=== PATIENT | female | born 1975 | race Caucasian/White ===

== ENCOUNTER 2018-12-25 17:58 | Inpatient (IN) | payer MEDICAID ==
[~2018-12-25] VITALS: Ht 160 cm; Wt 97.8 kg
[2018-12-25 18:57] LABS: BASOPHILS # (AUTO) 0.1 X10'3 (0-0.2); BASOPHILS % (AUTO) 0.4 % (0-1); EOSINOPHILS # (AUTO) 0.1 X10'3 (0-0.9); EOSINOPHILS % (AUTO) 0.6 % (0-6); HEMATOCRIT 38.2 % (35.0-45.0); HEMOGLOBIN 12.1 g/dl (12.0-16.0); LYMPHOCYTES # (AUTO) 2.4 X10'3 (1.1-4.8); LYMPHOCYTES % (AUTO) 19.3 % (21-51); MEAN CORPUSCULAR HEMOGLOBIN 22.9 PG (27.0-31.0); MEAN CORPUSCULAR HGB CONC 31.7 g/dL (33.0-36.5); MEAN CORPUSCULAR VOLUME 72.3 FL (78-98); MEAN PLATELET VOLUME 10.1 FL (7.4-10.4); MONOCYTES # (AUTO) 0.7 X10'3 (0-0.9); MONOCYTES % (AUTO) 5.7 % (2-12); NEUTROPHILS # (AUTO) 9.3 X10'3 (1.8-7.7); PLATELET COUNT 198 X10'3 (140-440); RED BLOOD COUNT 5.29 X10'6 (4.20-5.60); RED CELL DISTRIBUTION WIDTH 15.7 % (11.5-14.5); WHITE BLOOD COUNT 12.6 X10'3 (4.5-11.0)
[2018-12-25 18:59] LABS: URINE HCG NEGATIVE (NEG)
[2018-12-25 19:05] LABS: CLARITY,URINE CLEAR (Clear); COLOR,URINE YELLOW (Yellow); GLUCOSE, URINE NEGATIVE (Neg); KETONES,URINE NEGATIVE (Neg); LEUKOCYTE ESTERASE ,URINE NEGATIVE (Neg); NITRITES, URINE NEGATIVE (Neg); OCCULT BLOOD,URINE TRACE-INTACT (Neg); PH,URINE 6.5 (4.8-8.0); PROTEIN,URINE NEGATIVE (Neg); UROBILINOGEN,URINE 0.2 E.U/dL (0.2-1.0)
[2018-12-25 19:07] LABS: ALANINE AMINOTRANSFERASE 68 U/L (12-78); ALBUMIN 3.6 G/DL (3.4-5.0); ALBUMIN/GLOBULIN RATIO 0.9 (1.1-1.5); ALKALINE PHOSPHATASE 95 IU/L (46-116); ANION GAP 9 (8-16); ASPARTATE AMINO TRANSFERASE 101 U/L (10-37); BILIRUBIN,TOTAL 0.4 MG/DL (0.1-1.0); BLOOD UREA NITROGEN 9 MG/DL (7-18); BUN/CREATININE RATIO 12.9 (6.6-38.0); CALCIUM 9.1 MG/DL (8.5-10.1); CHLORIDE 103 MMOL/L (99-107); GLUCOSE 100 MG/DL (70-104); LIPASE 201 U/L (73-393); POTASSIUM 3.9 MMOL/L (3.5-5.1); SODIUM 137 MMOL/L (135-145); TOTAL CARBON DIOXIDE 25.5 MMOL/L (24-32); TOTAL PROTEIN 7.5 G/DL (6.4-8.2); eGFR 90 ML/MIN
[2018-12-25 19:08] LABS: UA COLLECTION TYPE CLN CATCH MIDSTREAM
[2018-12-25 19:27] LABS: BACTERIA,URINE FEW /HPF (Neg); RBC,URINE 0-2 /HPF (0-2); SQUAMOUS EPITHELIAL CELL,UR MODERATE /LPF (FEW); WBC,URINE 0-4 /HPF (0-4)
--- NOTE | 2018-12-25 20:22 | NUR ---
pt ambulated to restroom and back in room 10 on a steady gait.
[2018-12-25] MEDS ORDERED: LIDOcaine Viscous 15ml cup PO ONE (20:35)
[2018-12-25] MEDS ORDERED: famotidine/PF 10 mg/ml inj IV ONE (20:35)
[2018-12-25] MEDS ORDERED: ondansetron/PF 4mg/2ml inj IV ONE (20:35)
[2018-12-25] MEDS ORDERED: mag hydrox/Alum hydrox/simeth 30ml oral suspension PO ONE (20:35)
[2018-12-25] MEDS ORDERED: normal saline 1000ML IV soln IVB ONE (20:35)
--- NOTE | 2018-12-25 21:20 | NUR ---
pt to ct.
[2018-12-25] MEDS: morphine 4 MG/ML inj SYRINge IV PRN (21:36)
[2018-12-25] MEDS ORDERED: NO HOME MEDS (23:12)
[2018-12-25] MEDS ORDERED: potassium Cl 40MEQ/NS 500ml 500 ML IV PRN ×2 (23:20)
[2018-12-25] MEDS ORDERED: diphenhydrAMINE 50 mg/ml inj IV PRN (23:20)
[2018-12-25] MEDS ORDERED: morphine 4 MG/ML inj SYRINge IV PRN ×2 (23:20)
[2018-12-25] MEDS ORDERED: magnesium 2GM in 50ml NS 50 ML IV PRN (23:20)
[2018-12-25] MEDS ORDERED: HYDROcodone/acetaminophen 10/325mg tab PO PRN (23:20)
[2018-12-25] MEDS ORDERED: acetaminophen 325mg tablet PO PRN (23:20)
[2018-12-25] MEDS ORDERED: diphenhydrAMINE 25mg capsule PO PRN (23:20)
[2018-12-25] MEDS ORDERED: bisacodyl 10mg suppository rectal RC PRN (23:20)
[2018-12-25] MEDS ORDERED: magnesium 4gm in 100ml NS 100 ML IV PRN (23:20)
[2018-12-25] MEDS: normal saline 1000ml 1,000 ML IV SCH (23:47)
--- NOTE | 2018-12-25 23:54 | NUR ---
pt placed on hospital bed for comfort
[2018-12-26] MEDS: ondansetron/PF 4mg/2ml inj IV PRN (00:28)
[2018-12-26] MEDS: morphine 4 MG/ML inj SYRINge IV PRN (00:29)
[2018-12-26 07:48] LABS: BASOPHILS % (AUTO) 0.4 % (0-1); EOSINOPHILS # (AUTO) 0.1 X10'3 (0-0.9); EOSINOPHILS % (AUTO) 0.9 % (0-6); HEMATOCRIT 34.4 % (35.0-45.0); HEMOGLOBIN 11.1 g/dl (12.0-16.0); LYMPHOCYTES # (AUTO) 2.1 X10'3 (1.1-4.8); LYMPHOCYTES % (AUTO) 27.2 % (21-51); MEAN CORPUSCULAR HEMOGLOBIN 23.2 PG (27.0-31.0); MEAN CORPUSCULAR HGB CONC 32.3 g/dL (33.0-36.5); MEAN PLATELET VOLUME 9.8 FL (7.4-10.4); MONOCYTES # (AUTO) 0.6 X10'3 (0-0.9); MONOCYTES % (AUTO) 8.1 % (2-12); NEUTROPHILS # (AUTO) 4.8 X10'3 (1.8-7.7); NEUTROPHILS % (AUTO) 63.4 % (42-75); PLATELET COUNT 151 X10'3 (140-440); RED BLOOD COUNT 4.78 X10'6 (4.20-5.60); RED CELL DISTRIBUTION WIDTH 15.8 % (11.5-14.5); WHITE BLOOD COUNT 7.5 X10'3 (4.5-11.0)
[2018-12-26 07:59] LABS: ALANINE AMINOTRANSFERASE 89 U/L (12-78); ALBUMIN 2.9 G/DL (3.4-5.0); ALBUMIN/GLOBULIN RATIO 0.8 (1.1-1.5); ALKALINE PHOSPHATASE 91 IU/L (46-116); ANION GAP 8 (8-16); ASPARTATE AMINO TRANSFERASE 63 U/L (10-37); BILIRUBIN,TOTAL 0.4 MG/DL (0.1-1.0); BLOOD UREA NITROGEN 8 MG/DL (7-18); BUN/CREATININE RATIO 12.5 (6.6-38.0); CALCIUM 8.2 MG/DL (8.5-10.1); CHLORIDE 109 MMOL/L (99-107); CHOL/HDL RATIO 4.7 (0.00-4.99); CHOLESTEROL 159 MG/DL (0-200); CREATININE 0.64 MG/DL (0.40-0.90); GLUCOSE 90 MG/DL (70-104); HDL CHOLESTEROL 34 MG/DL (35-60); LDL CHOLESTEROL 107 MG/DL (50-100); MAGNESIUM 1.8 MG/DL (1.5-2.4); POTASSIUM 3.9 MMOL/L (3.5-5.1); SODIUM 141 MMOL/L (135-145); TOTAL CARBON DIOXIDE 23.9 MMOL/L (24-32); TOTAL PROTEIN 6.4 G/DL (6.4-8.2); TRIGLYCERIDES 114 MG/DL (20-135); eGFR > 90 ML/MIN
[2018-12-26] MEDS: K and/or MAG REPLACEMENT MC SCH (08:00)
[2018-12-26] MEDS: famotidine/PF 10 mg/ml inj IV SCH ×2 (08:53→20:00)
[2018-12-26] MEDS: levoFLOXACIN-Levaquin 500mg/D5 100 ML IV SCH (08:53)
[2018-12-26] MEDS: metroNIDAZOLE-Flagyl 500mg/NS 100 ML IV SCH ×2 (09:03→16:00)
--- NOTE | 2018-12-26 09:58 | NUR ---
[facility] CALLED, SINCE PT RECEIVED MORPHINE APPROX 1 HR AGO THE STUDY IS ON HOLD UNTIL 1900 THIS EVENING. REQUESTED NO OTHER NARCOTICS AND PT WILL REMAIN NPO.
[2018-12-26] MEDS ORDERED: sincalide inj 2 MCG in normal saline 50ml IV soln 50 ML IV ONE ×2 (10:00→17:50)
--- NOTE | 2018-12-26 10:35 | NUR ---
DR DEAN WAS IN TO SEE PT, SAYS SHE WILL TALK TO THE SURGEON
[2018-12-26] MEDS ORDERED: NO HOME MEDS ×3 (11:19→11:23)
[2018-12-26] MEDS: normal saline 1000ml 1,000 ML IV SCH (14:28)
--- NOTE | 2018-12-26 16:56 | NUR ---
PATIENT TO NUCLEAR MEDICAINE IN WHEEL CHAIR WITH ALL HER BELONGINGS.. PATIENT AMBULATED TO BATHROOM WNL; VOIDED PRIOR TO GOING FOR HIDA SCAN
--- NOTE | 2018-12-26 17:02 | NUR ---
Patient in room ED 6. I have received report from ER Neela MARSHALL and had the opportunity to ask questions, Patient is in a HIDA scan in nuc med currently.
--- NOTE | 2018-12-26 17:02 | NUR ---
PHONE REPORT TO PENELOPE MARSHALL; PATIENT GOING TO ROOM 347A AFTER HIDA SCAN
--- NOTE | 2018-12-26 18:22 | NUR ---
Problems reprioritized. Patient report given, questions answered & plan of care reviewed with Deyanira MARSHALL.
--- NOTE | 2018-12-26 18:30 | NUR ---
Patient in room [facility]. I have received report from Mona MARSHALL and had the opportunity to ask questions and assume patient care. Patient is not in room at this time.
--- NOTE | 2018-12-26 18:50 | NUR ---
Patient arrived back to room rom having hida scan. Patient A&Ox4, family at bedside, in no pain or distress at this time.
[2018-12-26 19:00] VITALS: BP 112/66
[2018-12-26] MEDS: oxyCODONE IR 5mg (immed. release) tablet PO PRN (21:14)
[2018-12-27 00:07] VITALS: BP 108/57
[2018-12-27] MEDS ORDERED: famotidine/PF 10 mg/ml inj IV ONE (00:55)
[2018-12-27] MEDS: normal saline 1000ml 1,000 ML IV SCH ×3 (01:00→13:41)
[2018-12-27] MEDS: oxyCODONE IR 5mg (immed. release) tablet PO PRN ×3 (03:04→19:09)
[2018-12-27 05:45] LABS: BASOPHILS % (AUTO) 0.3 % (0-1); EOSINOPHILS # (AUTO) 0.1 X10'3 (0-0.9); EOSINOPHILS % (AUTO) 1.1 % (0-6); HEMATOCRIT 35.3 % (35.0-45.0); HEMOGLOBIN 11.2 g/dl (12.0-16.0); LYMPHOCYTES # (AUTO) 2.4 X10'3 (1.1-4.8); LYMPHOCYTES % (AUTO) 30.2 % (21-51); MEAN CORPUSCULAR HEMOGLOBIN 23.2 PG (27.0-31.0); MEAN CORPUSCULAR HGB CONC 31.9 g/dL (33.0-36.5); MEAN CORPUSCULAR VOLUME 72.7 FL (78-98); MEAN PLATELET VOLUME 10.3 FL (7.4-10.4); MONOCYTES # (AUTO) 0.7 X10'3 (0-0.9); MONOCYTES % (AUTO) 8.4 % (2-12); NEUTROPHILS # (AUTO) 4.8 X10'3 (1.8-7.7); PLATELET COUNT 143 X10'3 (140-440); RED BLOOD COUNT 4.85 X10'6 (4.20-5.60); RED CELL DISTRIBUTION WIDTH 16.1 % (11.5-14.5)
[2018-12-27 06:03] LABS: ALANINE AMINOTRANSFERASE 66 U/L (12-78); ALBUMIN 2.9 G/DL (3.4-5.0); ALBUMIN/GLOBULIN RATIO 0.8 (1.1-1.5); ALKALINE PHOSPHATASE 84 IU/L (46-116); ANION GAP 10 (8-16); ASPARTATE AMINO TRANSFERASE 24 U/L (10-37); BILIRUBIN,TOTAL 0.5 MG/DL (0.1-1.0); BLOOD UREA NITROGEN 9 MG/DL (7-18); BUN/CREATININE RATIO 14.1 (6.6-38.0); CALCIUM 8.3 MG/DL (8.5-10.1); CHLORIDE 107 MMOL/L (99-107); CREATININE 0.64 MG/DL (0.40-0.90); GLUCOSE 80 MG/DL (70-104); MAGNESIUM 1.7 MG/DL (1.5-2.4); POTASSIUM 3.7 MMOL/L (3.5-5.1); SODIUM 140 MMOL/L (135-145); TOTAL CARBON DIOXIDE 23.3 MMOL/L (24-32); TOTAL PROTEIN 6.4 G/DL (6.4-8.2); eGFR > 90 ML/MIN
--- NOTE | 2018-12-27 06:50 | NUR ---
Problems reprioritized. Patient report given, questions answered & plan of care reviewed with Leslie RN. Patient resting comfortably, eyes closed, respirations steady.
--- NOTE | 2018-12-27 06:52 | NUR ---
Patient in room [facility]. I have received report from Deyanira MARSHALL and had the opportunity to ask questions and assume patient care.
[2018-12-27 07:00] VITALS: BP 101/62
[2018-12-27] MEDS: K and/or MAG REPLACEMENT MC SCH (08:00)
[2018-12-27] MEDS: lactobacillus rhamnosus 10,000 MMU CELLS/CAPSULE PO SCH ×2 (09:01→19:08)
[2018-12-27] MEDS: metroNIDAZOLE-Flagyl 500mg/NS 100 ML IV SCH ×4 (09:01→23:15)
[2018-12-27] MEDS: famotidine/PF 10 mg/ml inj IV SCH ×2 (09:01→19:09)
[2018-12-27] MEDS: ondansetron/PF 4mg/2ml inj IV PRN (10:15)
[2018-12-27] MEDS: levoFLOXACIN-Levaquin 500mg/D5 100 ML IV SCH (10:15)
[2018-12-27 11:00] VITALS: BP 100/34
--- NOTE | 2018-12-27 14:09 | NUR ---
Dr. Villafana made rounds, talk to patient and at bedside. Dr. Villafana said patient will go for surgery tomorrow, NPO post midnight. Patient was instructed about NPO status after midnight
[2018-12-27] MEDS ORDERED: mag hydrox/Alum hydrox/simeth 30ml oral suspension PO PRN (14:10)
[2018-12-27 15:29] LABS: PRE OP INR 1.1 INR
[2018-12-27 18:00] VITALS: BP 115/57
--- NOTE | 2018-12-27 18:47 | NUR ---
Problems reprioritized. Patient report given, questions answered & plan of care reviewed with Rosalba MARSHALL.
[2018-12-28] VITALS (24 sets, daily range): BP systolic 96–142; BP diastolic 50–75
[2018-12-28] MEDS: normal saline 1000ml 1,000 ML IV SCH ×3 (01:41→23:37)
[2018-12-28 05:18] LABS: BASOPHILS % (AUTO) 0.5 % (0-1); EOSINOPHILS # (AUTO) 0.1 X10'3 (0-0.9); EOSINOPHILS % (AUTO) 0.9 % (0-6); HEMATOCRIT 34.4 % (35.0-45.0); HEMOGLOBIN 11.1 g/dl (12.0-16.0); LYMPHOCYTES # (AUTO) 2.4 X10'3 (1.1-4.8); LYMPHOCYTES % (AUTO) 30.6 % (21-51); MEAN CORPUSCULAR HGB CONC 32.3 g/dL (33.0-36.5); MONOCYTES # (AUTO) 0.8 X10'3 (0-0.9); MONOCYTES % (AUTO) 9.9 % (2-12); NEUTROPHILS # (AUTO) 4.6 X10'3 (1.8-7.7); NEUTROPHILS % (AUTO) 58.1 % (42-75); PLATELET COUNT 148 X10'3 (140-440); RED BLOOD COUNT 4.84 X10'6 (4.20-5.60); RED CELL DISTRIBUTION WIDTH 15.9 % (11.5-14.5); WHITE BLOOD COUNT 7.9 X10'3 (4.5-11.0)
[2018-12-28 05:35] LABS: ALANINE AMINOTRANSFERASE 47 U/L (12-78); ALBUMIN 2.9 G/DL (3.4-5.0); ALBUMIN/GLOBULIN RATIO 0.9 (1.1-1.5); ALKALINE PHOSPHATASE 75 IU/L (46-116); ANION GAP 6 (8-16); ASPARTATE AMINO TRANSFERASE 18 U/L (10-37); BILIRUBIN,TOTAL 0.5 MG/DL (0.1-1.0); BLOOD UREA NITROGEN 6 MG/DL (7-18); BUN/CREATININE RATIO 8.2 (6.6-38.0); CALCIUM 8.6 MG/DL (8.5-10.1); CHLORIDE 108 MMOL/L (99-107); CREATININE 0.73 MG/DL (0.40-0.90); GLUCOSE 92 MG/DL (70-104); MAGNESIUM 1.7 MG/DL (1.5-2.4); POTASSIUM 3.9 MMOL/L (3.5-5.1); SODIUM 140 MMOL/L (135-145); TOTAL CARBON DIOXIDE 26.1 MMOL/L (24-32); TOTAL PROTEIN 6.3 G/DL (6.4-8.2); eGFR 86 ML/MIN
--- NOTE | 2018-12-28 06:14 | NUR ---
Problems reprioritized. Patient report given, questions answered & plan of care reviewed with JOANNA Nelson.
--- NOTE | 2018-12-28 06:18 | NUR ---
Patient in room [facility]. I have received report from Rosalba MARSHALL and had the opportunity to ask questions and assume patient care.
[2018-12-28] MEDS: lactobacillus rhamnosus 10,000 MMU CELLS/CAPSULE PO SCH ×3 (08:00→19:47)
[2018-12-28] MEDS: K and/or MAG REPLACEMENT MC SCH (08:00)
[2018-12-28] MEDS: famotidine/PF 10 mg/ml inj IV SCH ×2 (08:32→19:31)
[2018-12-28] MEDS: metroNIDAZOLE-Flagyl 500mg/NS 100 ML IV SCH ×3 (08:32→23:37)
[2018-12-28] MEDS: levoFLOXACIN-Levaquin 500mg/D5 100 ML IV SCH (09:56)
[2018-12-28] MEDS ORDERED: BUPIVAcaine/PF 2.5mg/ml (0.25%) 10ml vial ONE (14:49)
[2018-12-28] MEDS ORDERED: ceFAZolin 1000mg inj ONE (14:49)
--- NOTE | 2018-12-28 14:57 | NUR ---
Patient just left her room going to OR accompanied by OR staff
--- NOTE | 2018-12-28 15:01 | NUR ---
Report given to EARL Wright via telephone. Addendum: 12/28/18 at 1502 by Leslie Fields RN Metronidazole IV due for 16:00 given to the OR nurse
[2018-12-28] MEDS ORDERED: ringers solution, lacted 1,000 ML IV SCH (15:31)
[2018-12-28] MEDS ORDERED: dexamethasone sod phosphate 10mg/ml inj ONE (15:32)
[2018-12-28] MEDS ORDERED: neostigmine methylsulfate 1 MG/ML 10ml vial ONE (15:32)
[2018-12-28] MEDS ORDERED: sevoflurane 250ml liquid IH ONE (15:32)
[2018-12-28] MEDS ORDERED: ketorolac trometh. 30mg/ml inj. ONE (15:32)
[2018-12-28] MEDS ORDERED: ondansetron/PF 4mg/2ml inj IV PRN (15:35)
[2018-12-28] MEDS ORDERED: morphine 4 MG/ML inj SYRINge IV PRN ×2 (15:35)
[2018-12-28] MEDS ORDERED: meperidine/PF 25mg/ml syringe IV PRN ×2 (15:35)
[2018-12-28] MEDS ORDERED: proCHLORperazine 10 MG/2 ml inj IV PRN (15:35)
[2018-12-28] MEDS ORDERED: LIDOcaine 2% (20mg/ml) 5ml vial ONE (15:42)
[2018-12-28] MEDS ORDERED: midazolam 2 mg/2 ml injection ONE (15:42)
[2018-12-28] MEDS ORDERED: propofol inj 20 ML IV ONE (15:42)
[2018-12-28] MEDS ORDERED: fentaNYL/PF 50MCG/1 ML 2ML syringe ONE (15:42)
[2018-12-28] MEDS ORDERED: rocuronium 10mg/ml inj IV ONE (15:44)
[2018-12-28] MEDS ORDERED: ondansetron/PF 4mg/2ml inj ONE (15:55)
[2018-12-28] MEDS ORDERED: glycopyrrolate 0.2mg/ml inj ONE (16:29)
--- NOTE | 2018-12-28 16:39 | NUR ---
Received from OR via BED, accompanied by Anesthesiologist DR HAYES and report given by Anesthesiologist. PT DROWSY, DENIES PAIN, ABDOMEN W/4 LAP SITES COVERED W/BANDAIDS CDI. Addendum: 12/28/18 at 1650 by Shawnee Sampson RN Amended: Links added.
[2018-12-28] MEDS: meperidine/PF 25mg/ml syringe IV PRN ×2 (17:15→17:26)
--- NOTE | 2018-12-28 18:20 | NUR ---
Patient in room [facility]. I have received report from Leslie MARSHALL and had the opportunity to ask questions and assume patient care. pt in PACU, awaiting pt arrival
--- NOTE | 2018-12-28 18:26 | NUR ---
Problems reprioritized. Patient report given, questions answered & plan of care reviewed with Sidra MARSHALL.
--- NOTE | 2018-12-28 18:39 | NUR ---
Report called to receiving nurse. Transferred via BED, NO Belongings, PTS FAMILY AT BEDSIDE, BLL, CALL LIGHT GIVEN, SIDE RAILS UP X 2, NURSES AIDE NOTIFIED OF PTS ARRIVAL. Special Issues communicated to receiving nurse. YES. Addendum: 12/28/18 at 1919 by Shawnee Sampson RN Amended: Links added.
[2018-12-28] MEDS: oxyCODONE IR 5mg (immed. release) tablet PO PRN (21:24)
[2018-12-29] VITALS: BP 129/56
--- NOTE | 2018-12-29 03:36 | NUR ---
[address]. 12/26 cholelithiasis with 12/28 lap jennie. pt c/o 04/28 pain to abdomen with no relief from oxy IR. Surg 5471. awaiting call
--- NOTE | 2018-12-29 03:39 | NUR ---
Dr. Knight called concerning pain. new orders given. will continue to monitor.
[2018-12-29] MEDS ORDERED: morphine 2 MG/ML inj. syringe IV PRN (03:40)
[2018-12-29 04:43] LABS: BASOPHILS % (AUTO) 0.1 % (0-1); EOSINOPHILS % (AUTO) 0 % (0-6); HEMOGLOBIN 10.1 g/dl (12.0-16.0); LYMPHOCYTES # (AUTO) 0.6 X10'3 (1.1-4.8); LYMPHOCYTES % (AUTO) 6.1 % (21-51); MEAN CORPUSCULAR HEMOGLOBIN 23.3 PG (27.0-31.0); MEAN CORPUSCULAR HGB CONC 32.6 g/dL (33.0-36.5); MEAN CORPUSCULAR VOLUME 71.7 FL (78-98); MEAN PLATELET VOLUME 9.5 FL (7.4-10.4); MONOCYTES # (AUTO) 0.4 X10'3 (0-0.9); MONOCYTES % (AUTO) 3.9 % (2-12); NEUTROPHILS # (AUTO) 9.6 X10'3 (1.8-7.7); NEUTROPHILS % (AUTO) 89.9 % (42-75); PLATELET COUNT 168 X10'3 (140-440); RED BLOOD COUNT 4.32 X10'6 (4.20-5.60); RED CELL DISTRIBUTION WIDTH 15.8 % (11.5-14.5); WHITE BLOOD COUNT 10.7 X10'3 (4.5-11.0)
[2018-12-29 04:56] LABS: ALANINE AMINOTRANSFERASE 54 U/L (12-78); ALBUMIN 2.8 G/DL (3.4-5.0); ALBUMIN/GLOBULIN RATIO 0.9 (1.1-1.5); ALKALINE PHOSPHATASE 66 IU/L (46-116); ANION GAP 10 (8-16); ASPARTATE AMINO TRANSFERASE 33 U/L (10-37); BILIRUBIN,TOTAL 0.4 MG/DL (0.1-1.0); BLOOD UREA NITROGEN 9 MG/DL (7-18); BUN/CREATININE RATIO 13.4 (6.6-38.0); CHLORIDE 107 MMOL/L (99-107); CREATININE 0.67 MG/DL (0.40-0.90); GLUCOSE 123 MG/DL (70-104); MAGNESIUM 1.6 MG/DL (1.5-2.4); POTASSIUM 4.1 MMOL/L (3.5-5.1); SODIUM 138 MMOL/L (135-145); TOTAL CARBON DIOXIDE 20.8 MMOL/L (24-32); eGFR > 90 ML/MIN
--- NOTE | 2018-12-29 06:30 | NUR ---
Problems reprioritized. Patient report given, questions answered & plan of care reviewed with Gloria MARSHALL.
--- NOTE | 2018-12-29 06:35 | NUR ---
Patient in room [facility]. I have received report from JOANNA Valente and had the opportunity to ask questions and assume patient care.
[2018-12-29] MEDS: normal saline 1000ml 1,000 ML IV SCH ×2 (07:19→10:48)
[2018-12-29 07:36] VITALS: BP 107/59
[2018-12-29] MEDS: K and/or MAG REPLACEMENT MC SCH (08:00)
[2018-12-29] MEDS: metroNIDAZOLE-Flagyl 500mg/NS 100 ML IV SCH (09:54)
[2018-12-29] MEDS: lactobacillus rhamnosus 10,000 MMU CELLS/CAPSULE PO SCH (09:55)
[2018-12-29] MEDS: famotidine/PF 10 mg/ml inj IV SCH (09:55)
[2018-12-29] MEDS ORDERED: HYDROcodone/acetaminophen 10/325mg tab PO PRN (10:35)
[2018-12-29 11:00] VITALS: BP 116/61
--- NOTE | 2018-12-29 12:26 | NUR ---
Dr. Faith stated pt may discharge home, per Dr. Plascencia. Gloria RN notified.
[2018-12-29] MEDS: levoFLOXACIN-Levaquin 500mg/D5 100 ML IV SCH (12:31)
[2018-12-29] MEDS ORDERED: HYDR-3972 PO ×2 (12:39→13:05)
[2018-12-29] MEDS ORDERED: DOCU-28 PO (12:39)
--- NOTE | 2018-12-29 14:15 | NUR ---
Patient discharged. PIV removed: cath tip intact. Education given and patient and spouse verbalized understanding. The patient will follow up with Dr. Faith in his office. Patient received [place] from [facility] from [employer] beside delivery. Patient was wheeled down by staff. Patient was not discharged within 3 hours because the hospitalist put the discharge routine in before speaking with the surgeon to confirm that the patient could go home. The discharge routine also frequently gets put in before the discharge is actually filled out by the MD. Also, due to the high acuity of my patients I could not get her discharged faster.
== END 2018-12-29 14:12 | disposition home or self-care (01) | DRG 710 ==
LOC: ER 17:59 → ED HOLD 23:19 → OBSVTOIN 23:19 → EDBEDREQSVC 12-26 01:30 → ED HOLD 12-26 06:25 → CMPBEDREQ 12-26 19:40 → SUR 3N 12-26 19:42
PROVIDERS: ADMIT Family Medicine; ATTEND Internal Medicine
PROC: CF141ZZ Planar Nuclear Medicine Imaging of Gallbladder using Technetium 99m (Tc-99m) (ICD-10-PCS; 2018-12-26)
PROC: 0FT40ZZ Resection of Gallbladder, Open Approach (ICD-10-PCS; principal; 2018-12-28 15:32)
DX: A41.9 Sepsis, unspecified organism (principal); K80.00 Calculus of gallbladder with acute cholecystitis without obstruction; K76.89 Other specified diseases of liver; B17.9 Acute viral hepatitis, unspecified; E66.9 Obesity, unspecified; Z88.0 Allergy status to penicillin; Z80.41 Family history of malignant neoplasm of ovary; Z82.5 Family history of asthma and other chronic lower respiratory diseases; Z83.3 Family history of diabetes mellitus; Z98.891 History of uterine scar from previous surgery; Z98.51 Tubal ligation status; Z82.49 Family history of ischemic heart disease and other diseases of the circulatory system; Z83.79 Family history of other diseases of the digestive system; Z83.49 Family history of other endocrine, nutritional and metabolic diseases; Z68.38 Body mass index [BMI] 38.0-38.9, adult
CPT/HCPCS: 36415; 74176; 78227; 80053; 80061; 81001; 81025; 83690; 83735; 85025; 85610; 85730; 86885; 86900; 86901; 87070; 96361; 96374; 96375; 99285; A7000; A9537; G0378; J0690; J1100; J1885; J1956; J2001; J2175; J2250; J2270; J2405; J2704; J2710; J2805; J3010; J3490; J7030; J7040; J7120